=== PATIENT | female | born 1960 | race African-American/Black ===

== ENCOUNTER 2021-04-09 13:28 | Outpatient (CLI) | payer BC, SELFPAY ==
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
== END 2021-04-09 13:29 ==
PROVIDERS: PCP Internal Medicine; Visit Provider Internal Medicine
DX: R10.9 Unspecified abdominal pain (principal); M48.061 Spinal stenosis, lumbar region without neurogenic claudication; M47.896 Other spondylosis, lumbar region
CPT/HCPCS: 72131; 74176

== ENCOUNTER 2022-11-05 09:55 | Outpatient (CLI) | payer BC, SELFPAY ==
--- NOTE | ~2022-11-05 | CT_ITS ---
Clinical Indication: Weight loss CT Scan of the Chest, Abdomen, and Pelvis with Contrast: Technique: Contiguous sections were acquired throughout the chest, abdomen, and pelvis after intraven ous administration of 100 cc of Omnipaque 350. Dose reduction technique was used on this scan by rinku thomasing automated exposure control and iterative reconstruction technique. The dose-length product (DL P) was 366.70 mGy-cm. COMPARISON: 04/09/2021 Findings: There is no evidence of any significant mediastinal, hilar or axillary lymphadenopathy. The mediastin al soft tissues and vascular structures appear normal. There is no evidence of pleural or pericardial effusion. The lungs are clear. No pulmonary nodules or infiltrates are noted. Mild emphysema present. The liver, spleen, pancreas, gallbladder, right adrenal gland, and kidneys are within normal limits. Stable 2 cm left adrenal nodule. No evidence of aortic aneurysm. No lymphadenopathy. No bowel obstruction or bowel wall thickening. There is no evidence to suggest acute appendicitis. Urinary bladder is unremarkable. No pelvic mass seen. No ascites. Impression: Mild emphysema. Stable 2 cm left adrenal nodule. Reviewed, dictated and finalized at [facility]. Impression: Mild emphysema. Stable 2 cm left adrenal nodule.
[2022-11-05 10:30] LABS: Estimated Glomerular Filt Rate > 60
== END 2022-11-05 09:56 ==
LOC: MICIMG 09:57
PROVIDERS: PCP Internal Medicine; Visit Provider Internal Medicine
DX: R63.4 Abnormal weight loss (principal); J43.9 Emphysema, unspecified; D35.02 Benign neoplasm of left adrenal gland
CPT/HCPCS: 71260; 74177; Q9967